=== PATIENT | male | born 2000 | race African-American/Black ===

== ENCOUNTER 2023-07-14 12:43 | Emergency (ER) | payer OTHER ==
[~2023-07-14] VITALS: Ht 172.7 cm; Wt 82.0 kg
[2023-07-14 13:04] VITALS: TEMP 98.3
[2023-07-14 13:30] LABS: BASOPHILS % (AUTO) 0.6 % (0.0-2.0); EOSINOPHILS % (AUTO) 2.3 % (1.0-6.0); HEMATOCRIT 40.4 % (41-53); HEMOGLOBIN 13.2 g/dL (13.5-17.5); LYMPHOCYTES # (AUTO) 1.1 K/uL (1.0-4.8); LYMPHOCYTES % (AUTO) 20.9 % (22.0-44.0); MEAN CORPUSCULAR HEMOGLOBIN 24.4 pg (26.0-34.0); MEAN CORPUSCULAR HGB CONC 32.7 G/dL (31.0-37.0); MEAN CORPUSCULAR VOLUME 75 fL (80-100); MONOCYTES # (AUTO) 0.3 K/uL (0.1-1.0); MONOCYTES % (AUTO) 4.8 % (2.0-9.0); NEUTROPHILS # (AUTO) 3.9 K/uL (1.8-7.7); NEUTROPHILS % (AUTO) 71.4 % (40.0-70.0); PLATELET COUNT (AUTO) 273 K/uL (150-450); RED BLOOD CELL COUNT(AUTO) 5.42 MIL/uL (4.50-5.90); RED CELL DISTRIBUTION WIDTH 14.2 % (11.5-14.5); WHITE BLOOD COUNT (AUTO) 5.4 K/uL (4.5-11.0)
[2023-07-14 13:48] LABS: ANION GAP 7 mmol/L (8-16); CALCIUM, TOTAL 9.1 mg/dL (8.8-10.5); CARBON DIOXIDE 28 mmol/L (22-29); CHLORIDE 104 mmol/L (98-107); CREATININE 1.02 mg/dL (0.60-1.30); GLOMERULAR FILTR. RATE CALC > 60 mL/min (>60); GLUCOSE,RANDOM 94 mg/dL (70-110); POTASSIUM 3.7 mmol/L (3.5-5.1); SODIUM SERUM 139 mmol/L (136-145); UREA NITROGEN, BLOOD 9 mg/dL (7-18)
[2023-07-14 14:03] LABS: RBC MORPHOLOGY COMMENT ABNORMAL RBC MORPH
[2023-07-14 14:07] LABS: TROPONIN I-HIGH SENSITIVITY Less Than 4 ng/L (<76)
[2023-07-14 14:11] LABS: CREATINE KINASE, TOTAL ONLY 251 U/L (39-308)
[2023-07-14] MEDS: SODIUM CHLORIDE 0.9% 1,000 ML IV ONE (14:53)
[2023-07-14 15:22] VITALS: BP 128/74; PULSE 72; RESP 18
== END 2023-07-14 18:58 | disposition home or self-care (01) ==
LOC: EMS 12:43
DX: R55 Syncope and collapse (principal)
CPT/HCPCS: 71045; 80048; 82550; 84484; 85025; 93005; 96360; 99285; 36415-L1; 36415-TC